=== PATIENT | male | born 1960 ===

== ENCOUNTER 2020-10-09 10:45 | Inpatient (IN) | payer OTHER ==
[~2020-10-09] VITALS: Ht 182.9 cm; Wt 83.9 kg
== END 2020-10-19 15:58 | disposition home or self-care (01) | DRG 330 ==
LOC: SURH 10-16 06:56 → O/R 10-16 06:56 → SURH 10-16 10:45
PROVIDERS: ADMIT Colon & Rectal Surgery; ATTEND Colon & Rectal Surgery
PROC: 0DTP4ZZ Resection of Rectum, Percutaneous Endoscopic Approach (ICD-10-PCS; 2020-10-16)
PROC: 0WQF4ZZ Repair Abdominal Wall, Percutaneous Endoscopic Approach (ICD-10-PCS; 2020-10-16)
PROC: 0DBN4ZZ Excision of Sigmoid Colon, Percutaneous Endoscopic Approach (ICD-10-PCS; principal; 2020-10-16 10:45)
PROC: 4A12X4Z Monitoring of Cardiac Electrical Activity, External Approach (ICD-10-PCS; 2020-10-17)
DX: K57.32 Diverticulitis of large intestine without perforation or abscess without bleeding (principal); K43.6 Other and unspecified ventral hernia with obstruction, without gangrene; I97.89 Other postprocedural complications and disorders of the circulatory system, not elsewhere classified; R07.89 Other chest pain; Y83.8 Other surgical procedures as the cause of abnormal reaction of the patient, or of later complication, without mention of misadventure at the time of the procedure

== ENCOUNTER 2022-05-14 14:33 | Outpatient (CLI) | payer OTHER | END 2022-05-14 14:42 | disposition home or self-care (01) | LOC: LAB 14:33 | PROVIDERS: ATTEND Colon & Rectal Surgery | DX: K57.32 Diverticulitis of large intestine without perforation or abscess without bleeding (principal); K92.1 Melena; Z03.818 Encounter for observation for suspected exposure to other biological agents ruled out; Z20.822 Contact with and (suspected) exposure to COVID-19 ==